=== PATIENT | female | born 1995 | race Hispanic/Latino ===

== ENCOUNTER 2021-12-08 03:45 | Inpatient (IN) | payer OTHER ==
[~2021-12-08 03:45] MED LIST: BUTORPHANOL 1 MG/ML INJ IV PRN; CARBOPROST TROME 250 MCG/ML IM PRN; METHYLERGONOVINE 0.2MG/ML AMP IM PRN; OXYTOCIN/LR 20 UNIT/1,000 ML BAG IV SCH; PROMETHAZINE INJ 25 MG/ML AMP IM PRN; Ringers Lactate 1,000 ML IV PRN; Ringers Lactate 1,000 ML IV SCH
[2021-12-08 05:10] LABS: Absolute Lymphocytes (CBC) 1.6 K/uL (0.7-4.9); Hematocrit 30.5 % (36.0-45.0); Lymphocytes % 23.1 % (15.3-44.8); MCV 92.3 fL (80-100); MPV 7.8 fL (7.6-11.3); RBC Red Blood Cell Count 3.31 M/uL (3.86-4.86)
[2021-12-08 05:13] LABS: Urine Appearance Clear (Clear); Urine Bilirubin Negative (Negative); Urine Blood Negative (Negative); Urine Color Yellow (Yellow); Urine Glucose Negative (Negative); Urine Protein Negative (Negative); Urine Specific Gravity 1.025 (1.005-1.030); Urine Urobilinogen 0.2 mg/dL (0.2-1.0); Urine pH 6.5 (5.0-7.0)
[2021-12-08 05:52] VITALS: BMI 30.2
[2021-12-08] MEDS ORDERED: 0.2% ROPIVACAINE (200 MG/100 ML) BAG EP ONE (07:30)
[2021-12-08] MEDS ORDERED: FENTANYL CITR 100 MCG/2 ML IV ONE (07:31)
[2021-12-08] MEDS ORDERED: ROPIVACAINE HCL 0.2% 20ML AMP EP ONE (07:31)
--- NOTE | 2021-12-08 07:46 | PREOPHP ---
Date of Admission: 12/08/2021 History Of Present Illness: Sarah Anderson is a 25-year-old, 3, para 2, 39 weeks 2 days, foll owed antepartum without major complications. The patient is Rh positive, immune to rubella, negative strep, positive COVID absolutely without symptoms. Family History: Mother with diabetes. Past Medical History: No serious medical illnesses. Past Surgical History: No previous surgeries. Allergies: NO ALLERGIES. HAD GONORRHEA EARLY THIS YEAR, BUT WAS TREATED. Social History: Admitted to smoking marijuana early in the , not now. Physical Examination: HEENT: Clear. Pupils equal, round, reactive to light and accommodation. Conjunctivae well perfused . No oral, lingual, or buccal lesions. Chest and Lungs: Clear. Heart: Without murmurs, thrills, heaves, rubs. Breasts: Without masses on previous visit. Abdomen: Term size. Baby is vertex. Cervix is 2.5 cm, still somewhat posterior, 50% effaced. Rupt ure of membranes. Basically term fluid. Extremities: Clear without edema, cyanosis, or clubbing. Assessment And Plan: She is leisa regularly. Probably will request epidural. Full and labor talk given. Anticipate delivery sometime later today. AIDEE/SHAINA Voice ID: [id number]
[2021-12-08] MEDS ORDERED: LIDOCAINE 1% 20 ML MDV ONE (11:15)
--- NOTE | 2021-12-08 12:04 | PN ---
Sarah Anderson is at 4 cm, requested and received epidural anesthesia which is giving very good effect at this point. She is now approximately 7 cm, 90% effaced. Baby is still occiput posterior and at -1 station and as soon as it rotates, she will probably bring it down quickly. She is on 10 milliuni ts, we will go up to 12. FHTs normal, reactive. Everything looks good. Anticipate delivery relativ rajat soon. AIDEE/SHAINA Voice ID: [id number] Report ID: [id number]
[2021-12-08] MEDS ORDERED: Oxycodone HCl/Acetaminophen 1 TAB TAB PO PRN (13:18)
[2021-12-08] MEDS ORDERED: DIPHENHYDRAMINE 25 MG TAB/CAP PO PRN (13:18)
[2021-12-08] MEDS ORDERED: DOCUSATE NA/SENNA CONC 1 TAB PO PRN (13:18)
[2021-12-08] MEDS ORDERED: ACETAMINOPHEN 500 MG TAB PO PRN (13:18)
[2021-12-08] MEDS ORDERED: BISACODYL 10 MG RECTAL SUPP RC PRN (13:18)
[2021-12-08] MEDS ORDERED: IBUPROFEN 600 MG TAB PO PRN (13:18)
[2021-12-08] MEDS ORDERED: OXYTOCIN/LR 20 UNIT/1,000 ML BAG IV SCH (14:00)
[2021-12-08] MEDS: Oxycodone HCl/Acetaminophen 1 TAB TAB PO PRN (19:06)
--- NOTE | 2021-12-09 00:26 | DN ---
Surgeon: Oscar Mccrary MD Sarah Anderson, 25-year-old, 3, para 2, at term, followed antepartum without complications. A dmitted for labor induction, 2 to 2.5 cm this morning, rupture of membranes, clear fluid. The patien t went to an active labor pattern at 4 cm, requested and received epidural anesthesia, which gave exc ellent effect during remainder of labor and delivery. Second stage of about 15 to 20 minutes, sponta neous vaginal delivery of an estimated 6-pound plus female, Apgars 9 and 9. No episiotomy. No lacer ations worthy of suturing. Schultze delivery of the placenta, which was inspected and noted to be in tact and normal. Estimated blood loss to this point 350 cc. Rh positive. Immune to Rubella. Negat lisa strep. Tolerated all procedures well. Final Diagnoses: Term intrauterine , 39 weeks 2 days. Labor induction. Vaginal delivery. Epidural anesthesia. Positive COVID without symptoms. JIMC/MODL Voice ID: [id number] Report ID: [id number]
[2021-12-09 03:44] LABS: RPR (Rapid Plasma Reagin) NON-REACT (NON-REACT)
[2021-12-09] MEDS: Oxycodone HCl/Acetaminophen 1 TAB TAB PO PRN (04:28)
[2021-12-09 08:45] VITALS: BP 97/50; TEMP 97.7
--- NOTE | 2021-12-10 04:32 | DS ---
Date of Discharge: 12/09/2021 Sarah Anderson is a 25-year-old 3, para 2, 39 weeks and 2 days, delivered 6 pounds 7-ounce fem jeannette, Apgars 9 and 9. No episiotomy. No laceration. Schultze delivery of the placenta. Estimated b lood loss initially 350 cc. Mild hypotonus noted. 0.2 mg of Methergine given. Since that time, loc hia has been completely normal. No post epidural problems. Afebrile, ambulating, voiding. Will be dismissed later today to report back to my office in 4-6 weeks for followup. To report any temperatu re elevation of 100 degrees or greater, severe pain, heavy bleeding, or any other type of abnormaliti es. Requests no analgesics on dismissal. She is Rh positive, immune to rubella. Negative strep. P ositive COVID, but zero symptoms. Final Diagnoses: Term intrauterine at 39 weeks 2 days, vaginal delivery, epidural anesthes ia. Mild uterine hypotonus. Positive COVID status without symptoms. JIMC/MODL Voice ID: [id number] Report ID: [id number]
== END 2021-12-09 14:05 | disposition home or self-care (01) | DRG 805 ==
LOC: 2ND-WC 03:45
PROVIDERS: ADMIT Specialist; ATTEND Specialist
PROC: 10907ZC Drainage of Amniotic Fluid, Therapeutic from Products of Conception, Via Natural or Artificial Opening (ICD-10-PCS; principal; 2021-12-08)
PROC: 10E0XZZ Delivery of Products of Conception, External Approach (ICD-10-PCS; 2021-12-08)
PROC: 3E033VJ Introduction of Other Hormone into Peripheral Vein, Percutaneous Approach (ICD-10-PCS; 2021-12-08)
DX: O98.52 Other viral diseases complicating childbirth (principal); U07.1 COVID-19; Z37.0 Single live birth; Z3A.39 39 weeks gestation of pregnancy
CPT/HCPCS: 36415; 81003; 85025; 86592; 87340; J0595; J2210; J2550; J2590; J2795; J3010; J7120; U0003